=== PATIENT | male | born 1990 | race African-American/Black ===

== ENCOUNTER 2018-01-22 14:00 | Outpatient (CLI) | payer OTHER | END 2018-01-22 23:59 | disposition home or self-care (01) | LOC: WOU 14:00 | PROVIDERS: ATTEND Surgery | DX: Z48.89 Encounter for other specified surgical aftercare (principal); S61.313D Laceration without foreign body of left middle finger with damage to nail, subsequent encounter; L03.012 Cellulitis of left finger; W26.0XXD Contact with knife, subsequent encounter; M65.142 Other infective (teno)synovitis, left hand | CPT/HCPCS: A6402; G0463; Z7610 ==